=== PATIENT | female | born 1950 | race Caucasian/White ===

== ENCOUNTER 2022-04-30 22:06 | Emergency (ER) | payer SELFPAY ==
[~2022-04-30] VITALS: Ht 152.4 cm; Wt 59.0 kg
[2022-04-30 23:18] VITALS: BP 95/60
[2022-05-01 00:06] LABS: BASOPHILS % (AUTO) 0.7 % (0.0-2.0); EOSINOPHILS % (AUTO) 3.1 % (0.0-6.0); HEMATOCRIT 33 % (33-45); HEMOGLOBIN 11.1 g/dL (11.5-14.8); LYMPHOCYTES # (AUTO) 3.2 K/uL (0.8-4.8); LYMPHOCYTES % (AUTO) 51.7 % (20.0-44.0); MEAN CORPUSCULAR HGB CONC 34 g/dl (31.0-36.0); MEAN CORPUSCULAR VOLUME 89 fL (82-100); MONOCYTES # (AUTO) 0.4 K/uL (0.1-1.30); MONOCYTES % (AUTO) 7.1 % (2.0-12.0); NEUTROPHILS # (AUTO) 2.3 K/uL (1.8-8.9); NEUTROPHILS % (AUTO) 37.4 % (43.0-81.0); PLATELET COUNT (AUTO) 245 K/uL (150-450); RED BLOOD CELL COUNT(AUTO) 3.67 MIL/uL (4.0-5.2); WHITE BLOOD COUNT (AUTO) 6.3 K/uL (4.3-11.0)
[2022-05-01 00:13] LABS: CALCIUM, SERUM 8.5 mg/dL (8.5-10.1); CARBON DIOXIDE 25 mmol/L (21-32); CHLORIDE 98 mmol/L (98-107); CREATININE 0.6 mg/dL (0.6-1.3); GLUCOSE 104 mg/dL (74-106); POTASSIUM 3.9 mmol/L (3.5-5.1); SODIUM SERUM 130 mmol/L (136-145); UREA NITROGEN, BLOOD 14 mg/dL (7-18)
[2022-05-01 00:20] LABS: ALANINE AMINOTRANSFERASE 38 U/L (12-78); ALBUMIN 3.2 g/dL (3.4-5.0); ALKALINE PHOSPHATASE 101 U/L (46-116); ASPARTATE AMINOTRANSFERASE 26 U/L (15-37); BILIRUBIN,DIRECT 0.1 mg/dL (0.0-0.2); BILIRUBIN,TOTAL 0.1 mg/dL (0.2-1.0); TOTAL PROTEIN, SERUM 7.1 g/dL (6.4-8.2)
== END 2022-05-01 04:40 | disposition home or self-care (01) ==
LOC: EDBD 22:15 → EDSEX 22:15 → ER 22:15
DX: M79.602 Pain in left arm (principal)
CPT/HCPCS: 36415; 71045-TC; 80048-TC; 80076-TC; 84484-TC; 85025-TC; 85730-TC

== ENCOUNTER 2023-03-16 00:16 | Emergency (ER) | payer MEDICAID ==
[~2023-03-16] VITALS: Ht 152.4 cm; Wt 59.0 kg
--- NOTE | 2023-03-16 00:27 | NUR ---
duplicate Addendum: 03/16/23 at 0030 by RHILOMEN LIZZY THOMAS
--- NOTE | 2023-03-16 00:40 | NUR ---
URINE SAMPLE COLLECTED AND SENT TO LAB.
[2023-03-16 01:00] VITALS: BP 112/70
[2023-03-16 01:44] LABS: BILIRUBIN,URINE NEGATIVE (NEGATIVE); COLOR,URINE DARK YELLOW (YELLOW); LEUKOCYTE ESTERASE ,URINE NEGATIVE (NEGATIVE); NITRITE, URINE POSITIVE (NEGATIVE); PH,URINE 6.5 (5.0-8.0); PROTEIN,URINE NEGATIVE (NEGATIVE); UGLUCOSE NEGATIVE (NEGATIVE); UROBILINOGEN,URINE 0.2 EU/dL (0.2)
[2023-03-16 01:50] LABS: BACTERIA,URINE Few /HPF (None Seen); RBC,URINE 0-2 /HPF (0-2); SQUAMOUS EPITHELIAL CELL,UR Rare /HPF (None Seen)
[2023-03-16] MEDS ORDERED: KETOROLAC TROMETHAMINE INJ 30 MG/ML VIAL IM ONE (02:00)
[2023-03-16 02:22] LABS: CALCIUM, SERUM 9.6 mg/dL (8.5-10.1); CARBON DIOXIDE 23 mmol/L (21-32); CHLORIDE 100 mmol/L (98-107); CREATININE 0.6 mg/dL (0.6-1.3); GLUCOSE 87 mg/dL (74-106); POTASSIUM 4.6 mmol/L (3.5-5.1); SODIUM SERUM 132 mmol/L (136-145); UREA NITROGEN, BLOOD 12 mg/dL (7-18)
[2023-03-16] MEDS ORDERED: KETOROLAC TROMETHAMINE INJ 30 MG/ML VIAL ONE (02:27)
[2023-03-16 02:29] LABS: ALANINE AMINOTRANSFERASE 63 U/L (12-78); ALBUMIN 3.8 g/dL (3.4-5.0); ALKALINE PHOSPHATASE 137 U/L (46-116); ASPARTATE AMINOTRANSFERASE 35 U/L (15-37); BILIRUBIN,DIRECT 0.1 mg/dL (0.0-0.2); BILIRUBIN,TOTAL 0.2 mg/dL (0.2-1.0); LIPASE 66 U/L (73-393); TOTAL PROTEIN, SERUM 8.2 g/dL (6.4-8.2)
[2023-03-16 03:18] LABS: BASOPHILS % (AUTO) 0.7 % (0.0-2.0); EOSINOPHILS % (AUTO) 3.5 % (0.0-6.0); HEMATOCRIT 36 % (33-45); HEMOGLOBIN 12.2 g/dL (11.5-14.8); LYMPHOCYTES # (AUTO) 3.5 K/uL (0.8-4.8); LYMPHOCYTES % (AUTO) 56.7 % (20.0-44.0); MEAN CORPUSCULAR HGB CONC 34 g/dl (31.0-36.0); MEAN CORPUSCULAR VOLUME 93 fL (82-100); MONOCYTES # (AUTO) 0.4 K/uL (0.1-1.30); MONOCYTES % (AUTO) 7.1 % (2.0-12.0); PLATELET COUNT (AUTO) 330 K/uL (150-450); WHITE BLOOD COUNT (AUTO) 6.2 K/uL (4.3-11.0)
--- NOTE | 2023-03-16 04:39 | NUR ---
[place] [facility] [place] [id number] REPORT GIVEN TO GURINDER AT [phone]. [facility] ETA: 60-9 MIN
--- NOTE | 2023-03-16 05:13 | NUR ---
[facility] AT BED SIDE TO [facility] OPERATOR THE PT
--- NOTE | 2023-03-16 05:29 | NUR ---
TRANSFERRED [facility] TO THE FACILITY IN STABLE CONDITION
== END 2023-03-16 05:38 | disposition home or self-care (01) ==
LOC: ER 00:18
DX: R10.9 Unspecified abdominal pain (principal)
CPT/HCPCS: 99283; 96372; 85025; 80048; 87086; 83690; 80076; 81001; 36415; J1885

== ENCOUNTER 2023-03-22 04:20 | Emergency (ER) | payer MEDICAID ==
[~2023-03-22] VITALS: Ht 152.4 cm; Wt 59.0 kg
[2023-03-22 04:30] VITALS: BP 118/70; TEMP 97.9
--- NOTE | 2023-03-22 04:39 | NUR ---
[facility] ETA BACK TO FACILITY: 2 HOURS
--- NOTE | 2023-03-22 07:14 | NUR ---
Patient was picked up by [facility] and transferred back to the facility in stable condition
== END 2023-03-22 07:16 ==
LOC: ER 04:22
DX: F20.9 Schizophrenia, unspecified (principal); G89.29 Other chronic pain

== ENCOUNTER 2023-04-02 20:40 | Emergency (ER) | payer MEDICAID ==
[~2023-04-02] VITALS: Ht 162.6 cm; Wt 56.7 kg
--- NOTE | 2023-04-02 20:50 | NUR ---
[id number]. GEN BODY PAIN X TODAY.
--- NOTE | 2023-04-02 20:54 | NUR ---
PT PROVIDED WITH WARM BLANKET FOR COMFORT.
--- NOTE | 2023-04-02 21:13 | NUR ---
CALLED [facility] FOR TRANSPORT BACK TO FACILITY. ETA 30 MINUTES
[2023-04-02] MEDS ORDERED: KETOROLAC TROMETHAMINE INJ 30 MG/ML VIAL ONE (21:14)
[2023-04-02] MEDS ORDERED: KETOROLAC TROMETHAMINE INJ 60 MG/2 ML VIAL IM ONE (21:30)
--- NOTE | 2023-04-02 21:35 | NUR ---
REPORT GIVEN AT BEDSIDE TO [facility] FOR TRANSPORT BACK TO [facility]
[2023-04-02 21:53] VITALS: BP 98/87; TEMP 98.5
== END 2023-04-02 21:48 ==
LOC: ER 20:53
DX: G89.29 Other chronic pain (principal); M79.10 Myalgia, unspecified site
CPT/HCPCS: 99283; 96372; J1885

== ENCOUNTER 2023-04-17 08:45 | Inpatient (IN) | payer MEDICAID ==
[~2023-04-17] VITALS: Ht 162.6 cm; Wt 54.4 kg
[2023-04-17] MEDS ORDERED: MORPHINE SULFATE INJ 4 MG/ML DISP.SYRIN ONE (09:29)
[2023-04-17] MEDS ORDERED: MORPHINE SULFATE INJ 2 MG/ML DISP.SYRIN IM ONE (09:30)
[2023-04-17] MEDS ORDERED: HYDROCODONE/APAP 5/325MG TABLET PO ONE (13:30)
[2023-04-17] MEDS ORDERED: HYDROCODONE/APAP 5/325MG TABLET ONE (13:36)
[2023-04-17] MEDS ORDERED: hydrALAZINE HCL IV 20 MG VIAL IV PRN (15:00)
[2023-04-17] MEDS: IV NS 0.9% 1,000 ML IV SCH ×2 (15:00→20:16)
[2023-04-17] MEDS ORDERED: ACETAMINOPHEN 325 MG TABLET PO PRN (15:00)
[2023-04-17] MEDS ORDERED: ONDANSETRON HCL/PF 4 MG/2 ML VIAL IVP PRN (15:00)
[2023-04-17 16:27] LABS: BASOPHILS % (AUTO) 0.2 % (0.0-2.0); EOSINOPHILS % (AUTO) 0.1 % (0.0-6.0); HEMATOCRIT 39 % (33-45); LYMPHOCYTES # (AUTO) 1.3 K/uL (0.8-4.8); LYMPHOCYTES % (AUTO) 12.9 % (20.0-44.0); MEAN CORPUSCULAR HGB CONC 34 g/dl (31.0-36.0); MEAN CORPUSCULAR VOLUME 94 fL (82-100); MONOCYTES # (AUTO) 0.4 K/uL (0.1-1.30); MONOCYTES % (AUTO) 4.4 % (2.0-12.0); NEUTROPHILS # (AUTO) 8.2 K/uL (1.8-8.9); NEUTROPHILS % (AUTO) 82.4 % (43.0-81.0); PLATELET COUNT (AUTO) 317 K/uL (150-450); RED BLOOD CELL COUNT(AUTO) 4.13 MIL/uL (4.0-5.2)
[2023-04-17 16:34] LABS: CALCIUM, SERUM 9.2 mg/dL (8.5-10.1); CARBON DIOXIDE 23 mmol/L (21-32); CHLORIDE 96 mmol/L (98-107); CREATININE 0.5 mg/dL (0.6-1.3); GLUCOSE 116 mg/dL (74-106); POTASSIUM 3.6 mmol/L (3.5-5.1); SODIUM SERUM 130 mmol/L (136-145); UREA NITROGEN, BLOOD 5 mg/dL (7-18)
[2023-04-17] MEDS: HYDROCODONE/APAP 5/325MG TABLET PO PRN (17:50)
[2023-04-17] MEDS: ENOXAPARIN SODIUM 40 MG/0.4 ML DISP.SYRIN SQ SCH (17:51)
[2023-04-17 19:15] VITALS: BP 152/76; TEMP 98.2; O2SAT 84
[2023-04-17] MEDS: MORPHINE SULFATE INJ 2 MG/ML DISP.SYRIN IV PRN (20:17)
[2023-04-18] MEDS: MORPHINE SULFATE INJ 2 MG/ML DISP.SYRIN IV PRN ×5 (00:48→22:42)
[2023-04-18] MEDS: HYDROCODONE/APAP 5/325MG TABLET PO PRN ×2 (06:49→16:18)
[2023-04-18 06:52] LABS: BASOPHILS % (AUTO) 0.3 % (0.0-2.0); EOSINOPHILS % (AUTO) 0.1 % (0.0-6.0); HEMATOCRIT 36 % (33-45); LYMPHOCYTES # (AUTO) 1.5 K/uL (0.8-4.8); LYMPHOCYTES % (AUTO) 13.2 % (20.0-44.0); MEAN CORPUSCULAR HGB CONC 33 g/dl (31.0-36.0); MEAN CORPUSCULAR VOLUME 94 fL (82-100); MONOCYTES # (AUTO) 0.6 K/uL (0.1-1.30); MONOCYTES % (AUTO) 5.4 % (2.0-12.0); NEUTROPHILS # (AUTO) 9.2 K/uL (1.8-8.9); PLATELET COUNT (AUTO) 309 K/uL (150-450); RED BLOOD CELL COUNT(AUTO) 3.81 MIL/uL (4.0-5.2); WHITE BLOOD COUNT (AUTO) 11.4 K/uL (4.3-11.0)
[2023-04-18 07:28] LABS: ALANINE AMINOTRANSFERASE 38 U/L (12-78); ALKALINE PHOSPHATASE 140 U/L (46-116); ASPARTATE AMINOTRANSFERASE 22 U/L (15-37); BILIRUBIN,TOTAL 0.4 mg/dL (0.2-1.0); CALCIUM, SERUM 8.8 mg/dL (8.5-10.1); CARBON DIOXIDE 22 mmol/L (21-32); CHLORIDE 97 mmol/L (98-107); CREATININE 0.5 mg/dL (0.6-1.3); GLUCOSE 112 mg/dL (74-106); MAGNESIUM 1.9 mg/dL (1.8-2.4); PHOSPHORUS 3.4 mg/dL (2.5-4.9); POTASSIUM 3.5 mmol/L (3.5-5.1); SODIUM SERUM 129 mmol/L (136-145); TOTAL PROTEIN, SERUM 7.1 g/dL (6.4-8.2); UREA NITROGEN, BLOOD 4 mg/dL (7-18)
[2023-04-18 08:00] VITALS: BP 155/82; TEMP 99.5; O2SAT 92
[2023-04-18] MEDS ORDERED: POLYMYXIN B SULFATE 500,000 UNITS ONE (08:28)
[2023-04-18] MEDS ORDERED: BUPIVACAINE 0.5 % PF 150 MG/30 ML VIAL ONE (08:28)
[2023-04-18] MEDS ORDERED: VANCOMYCIN 1 GM VIAL ONE (08:29)
[2023-04-18] MEDS ORDERED: ROPIVACAINE HCL 0.5% 5 MG/ML 30ML VIAL ONE ×2 (08:57→09:05)
[2023-04-18] MEDS ORDERED: MIDAZOLAM HCL 2 MG/2ML VIAL ONE (08:57)
[2023-04-18] MEDS ORDERED: TRANEXAMIC ACID 1,000 MG/10 ML VIAL ONE (08:57)
[2023-04-18] MEDS ORDERED: FENTANYL PF 100MCG/2ML AMPUL ONE (08:57)
[2023-04-18] MEDS ORDERED: ROCURONIUM BROMIDE 50 MG/5 ML ONE (08:58)
[2023-04-18] MEDS ORDERED: FAMOTIDINE/PF INJ 20 MG/2 ML VIAL IV ONE (08:58)
[2023-04-18] MEDS ORDERED: DOCU250C14 PO (14:33)
[2023-04-18] MEDS ORDERED: METO50TA16 PO (14:33)
[2023-04-18] MEDS ORDERED: SODI1TAB66 PO (14:33)
[2023-04-18] MEDS ORDERED: OLAN15TA3 PO (14:33)
[2023-04-18] MEDS ORDERED: FERR325T23 PO (14:33)
[2023-04-18] MEDS ORDERED: OLAN10TA3 PO (14:33)
[2023-04-18] MEDS ORDERED: PRIM250T32 PO (14:33)
[2023-04-18] MEDS ORDERED: PHENOBARBITAL PO (14:33)
[2023-04-18] MEDS ORDERED: APIX5TAB PO (14:33)
[2023-04-18] MEDS ORDERED: OXYC-128 PO (14:33)
[2023-04-18] MEDS ORDERED: MULT-1160 PO (14:33)
[2023-04-18] MEDS ORDERED: ASPI-1169 PO (14:33)
[2023-04-18] MEDS ORDERED: FURO20TA4 PO (14:33)
[2023-04-18] MEDS ORDERED: ATOR10TA PO (14:33)
[2023-04-18] MEDS ORDERED: QUET100T PO (14:33)
[2023-04-18] MEDS ORDERED: LORA10TA7 PO (14:33)
[2023-04-18] MEDS ORDERED: OMEP20CA15 PO (14:33)
[2023-04-18] MEDS ORDERED: GABA-536 PO (14:33)
[2023-04-18] MEDS ORDERED: RISP0.5T65 PO (14:33)
[2023-04-18] MEDS ORDERED: AMLO2.5T4 PO (14:33)
[2023-04-18] MEDS ORDERED: TEMA15CA PO (14:33)
[2023-04-18] MEDS: ENOXAPARIN SODIUM 40 MG/0.4 ML DISP.SYRIN SQ SCH (16:21)
[2023-04-18 16:27] VITALS: BP 141/79; TEMP 98; O2SAT 98
[2023-04-18] MEDS: IV NS 0.9% 1,000 ML IV SCH (18:09)
[2023-04-18 20:00] VITALS: BP 111/66; TEMP 98.2; O2SAT 97
[2023-04-18 23:40] VITALS: O2SAT 97
[2023-04-18] MEDS: ACETYLCYSTEINE 20% SOLN 800 MG/4 ML VIAL NEB SCH (23:41)
[2023-04-18 23:55] VITALS: O2SAT 99
[2023-04-19] VITALS (9 sets, daily range): BP systolic 112–152; BP diastolic 65–76; TEMP 98.2–98.6; O2SAT 94–99
[2023-04-19] MEDS ORDERED: ZOLPIDEM TARTRATE 5 MG TABLET PO PRN (00:30)
[2023-04-19] MEDS: MORPHINE SULFATE INJ 2 MG/ML DISP.SYRIN IV PRN ×6 (03:53→21:50)
[2023-04-19 04:39] LABS: ABG BASE EXCESS 0.7 mmol/L; ABG OXYGEN SATURATION 96.1 % (92.0-98.5); ABG PCO2 36.1 mmHg (35.0-45.0); ABG PH 7.448 (7.350-7.450); AaDO2 193.8 mmHg; COHb 0.9 % (0.5-1.5); MetHb 0.3 % (0.0-1.5); O2Hb 94.9 % (94.0-97.0); SITE, ABG Left Radial; VENT MODE, BG 6L SIMPLE MASK
[2023-04-19 06:30] LABS: BILIRUBIN,URINE NEGATIVE (NEGATIVE); COLOR,URINE DARK YELLOW (YELLOW); LEUKOCYTE ESTERASE ,URINE 1+ (NEGATIVE); NITRITE, URINE POSITIVE (NEGATIVE); PROTEIN,URINE 2+ mg/dl (NEGATIVE); UGLUCOSE NEGATIVE (NEGATIVE)
[2023-04-19 06:31] LABS: BACTERIA,URINE Moderate /HPF (None Seen); SQUAMOUS EPITHELIAL CELL,UR Few /HPF (None Seen)
[2023-04-19] MEDS: IV NS 0.9% 1,000 ML IV SCH ×2 (07:00→21:53)
[2023-04-19 07:57] LABS: BASOPHILS % (AUTO) 0.1 % (0.0-2.0); EOSINOPHILS % (AUTO) 0.3 % (0.0-6.0); HEMATOCRIT 32 % (33-45); HEMOGLOBIN 11.2 g/dL (11.5-14.8); LYMPHOCYTES # (AUTO) 2.1 K/uL (0.8-4.8); LYMPHOCYTES % (AUTO) 26.2 % (20.0-44.0); MEAN CORPUSCULAR HGB CONC 35 g/dl (31.0-36.0); MEAN CORPUSCULAR VOLUME 93 fL (82-100); MONOCYTES # (AUTO) 0.6 K/uL (0.1-1.30); MONOCYTES % (AUTO) 7.7 % (2.0-12.0); NEUTROPHILS # (AUTO) 5.2 K/uL (1.8-8.9); NEUTROPHILS % (AUTO) 65.7 % (43.0-81.0); PLATELET COUNT (AUTO) 286 K/uL (150-450); RED BLOOD CELL COUNT(AUTO) 3.47 MIL/uL (4.0-5.2)
[2023-04-19 08:07] LABS: CALCIUM, SERUM 9.1 mg/dL (8.5-10.1); CARBON DIOXIDE 26 mmol/L (21-32); CHLORIDE 98 mmol/L (98-107); CREATININE 0.4 mg/dL (0.6-1.3); GLUCOSE 98 mg/dL (74-106); MAGNESIUM 2.1 mg/dL (1.8-2.4); PHOSPHORUS 2.6 mg/dL (2.5-4.9); POTASSIUM 3.6 mmol/L (3.5-5.1); SODIUM SERUM 133 mmol/L (136-145); UREA NITROGEN, BLOOD 7 mg/dL (7-18)
[2023-04-19] MEDS: ACETYLCYSTEINE 20% SOLN 800 MG/4 ML VIAL NEB SCH ×3 (08:09→23:51)
[2023-04-19] MEDS: CEFTRIAXONE 1 G in IV D5W 50 ML IV SCH (10:17)
[2023-04-19] MEDS: HYDROCODONE/APAP 5/325MG TABLET PO PRN (10:18)
[2023-04-19] MEDS: LORAZEPAM INJ 2 MG/ML VIAL IV PRN ×2 (13:04→23:42)
[2023-04-19] MEDS: ENOXAPARIN SODIUM 40 MG/0.4 ML DISP.SYRIN SQ SCH (16:13)
[2023-04-20] VITALS (12 sets, daily range): BP systolic 113–174; BP diastolic 58–94; TEMP 97.4–98.2; O2SAT 91–98
[2023-04-20] MEDS: ACETYLCYSTEINE 20% SOLN 800 MG/4 ML VIAL NEB SCH ×3 (07:35→23:19)
[2023-04-20] MEDS ORDERED: ANESTHESIA TRAY IN PYXIS 1 EA TRAY MC ONE (07:57)
[2023-04-20] MEDS ORDERED: VANCOMYCIN 1 GM VIAL ONE (07:58)
[2023-04-20] MEDS ORDERED: POLYMYXIN B SULFATE 0 UNITS ONE (07:58)
[2023-04-20] MEDS ORDERED: BUPIVACAINE 0.5 % PF 150 MG/30 ML VIAL ONE (07:58)
[2023-04-20] MEDS ORDERED: KETAMINE HCL (500MG/10ML) 50 MG/ML VIAL ONE (08:13)
[2023-04-20] MEDS ORDERED: MIDAZOLAM HCL 2 MG/2ML VIAL ONE (08:13)
[2023-04-20] MEDS ORDERED: FENTANYL PF 100MCG/2ML AMPUL ONE (08:13)
[2023-04-20] MEDS ORDERED: ROPIVACAINE HCL 0.5% 5 MG/ML 30ML VIAL ONE (08:14)
[2023-04-20] MEDS ORDERED: LIDOCAINE 1% INJ 50 ML MDV IJ ONE (08:17)
[2023-04-20] MEDS ORDERED: IV D5/0.45 NACL W/20 MEQ KCL 1L IV SCH ×2 (13:00)
[2023-04-20] MEDS: CEFTRIAXONE 1 G in IV D5W 50 ML IV SCH (13:46)
[2023-04-20] MEDS: MORPHINE SULFATE INJ 2 MG/ML DISP.SYRIN IV PRN ×3 (14:23→23:39)
[2023-04-20] MEDS ORDERED: IV NS 0.9% 1,000 ML IV PRN (15:30)
[2023-04-20] MEDS: ENOXAPARIN SODIUM 40 MG/0.4 ML DISP.SYRIN SQ SCH (16:12)
[2023-04-20] MEDS: LORAZEPAM INJ 2 MG/ML VIAL IV PRN (16:56)
[2023-04-20] MEDS: Potassium Chloride 20 MEQ in IV D5/0.45 NACL 1,000 ML IV SCH ×3 (17:42→18:11)
[2023-04-20] MEDS: ANCEF 1 GM/50 ML D5W IV SCH ×2 (17:44)
[2023-04-21] MEDS: LORAZEPAM INJ 2 MG/ML VIAL IV PRN (01:12)
[2023-04-21] MEDS: ANCEF 1 GM/50 ML D5W IV SCH ×4 (01:28→10:34)
[2023-04-21] MEDS: MORPHINE SULFATE INJ 2 MG/ML DISP.SYRIN IV PRN ×5 (02:56→17:45)
[2023-04-21 07:26] VITALS: O2SAT 94
[2023-04-21] MEDS: ACETYLCYSTEINE 20% SOLN 800 MG/4 ML VIAL NEB SCH (07:26)
[2023-04-21] MEDS: Potassium Chloride 20 MEQ in IV D5/0.45 NACL 1,000 ML IV SCH ×2 (07:39→22:42)
[2023-04-21 07:42] VITALS: O2SAT 97
[2023-04-21 08:57] VITALS: BP 163/84; TEMP 98.2; O2SAT 97
[2023-04-21] MEDS: CEFTRIAXONE 1 G in IV D5W 50 ML IV SCH (09:26)
[2023-04-21] MEDS: FERROUS SULFATE (325 MG) 325 MG/TAB TABLET PO SCH (09:27)
[2023-04-21] MEDS: DOCUSATE SODIUM 250 MG CAPSULE PO SCH ×2 (09:27→16:21)
[2023-04-21] MEDS: ASPIRIN 81 MG TAB.CHEW PO SCH (09:27)
[2023-04-21] MEDS: MULTIVIT W/MINERALS 1 TAB TABLET PO SCH (09:27)
[2023-04-21] MEDS: LORATADINE 10 MG TABLET PO SCH (09:27)
[2023-04-21] MEDS: PRIMIDONE 250 MG TABLET PO SCH ×2 (09:27→16:22)
[2023-04-21] MEDS: OLANZAPINE 10 MG TABLET PO SCH (09:27)
[2023-04-21] MEDS: GABAPENTIN 400 MG CAPSULE PO SCH ×3 (09:28→16:21)
[2023-04-21] MEDS: FUROSEMIDE 20 MG TABLET PO SCH (09:28)
[2023-04-21] MEDS: AMLODIPINE BESYLATE 2.5 MG TABLET PO SCH (09:29)
[2023-04-21] MEDS: METOPROLOL TARTRATE 50 MG TABLET PO SCH ×2 (09:29→16:22)
[2023-04-21] MEDS: APIXABAN 5 MG TABLET PO SCH ×2 (09:31→16:23)
[2023-04-21 09:55] LABS: BASOPHILS % (AUTO) 0.2 % (0.0-2.0); EOSINOPHILS % (AUTO) 0.3 % (0.0-6.0); HEMATOCRIT 31 % (33-45); LYMPHOCYTES # (AUTO) 1.8 K/uL (0.8-4.8); LYMPHOCYTES % (AUTO) 23.3 % (20.0-44.0); MEAN CORPUSCULAR HGB CONC 35 g/dl (31.0-36.0); MEAN CORPUSCULAR VOLUME 92 fL (82-100); MONOCYTES # (AUTO) 0.8 K/uL (0.1-1.30); MONOCYTES % (AUTO) 9.7 % (2.0-12.0); NEUTROPHILS # (AUTO) 5.2 K/uL (1.8-8.9); NEUTROPHILS % (AUTO) 66.5 % (43.0-81.0); PLATELET COUNT (AUTO) 293 K/uL (150-450); RED BLOOD CELL COUNT(AUTO) 3.38 MIL/uL (4.0-5.2); WHITE BLOOD COUNT (AUTO) 7.8 K/uL (4.3-11.0)
[2023-04-21 10:06] LABS: CALCIUM, SERUM 8.8 mg/dL (8.5-10.1); CARBON DIOXIDE 24 mmol/L (21-32); CHLORIDE 97 mmol/L (98-107); CREATININE 0.3 mg/dL (0.6-1.3); GLUCOSE 114 mg/dL (74-106); POTASSIUM 3.3 mmol/L (3.5-5.1); SODIUM SERUM 131 mmol/L (136-145); UREA NITROGEN, BLOOD 3 mg/dL (7-18)
[2023-04-21] MEDS: SODIUM CHLORIDE 1000 MG TABLET PO SCH ×2 (10:38→16:21)
[2023-04-21] MEDS: risperiDONE 0.25 MG TABLET PO SCH ×2 (10:38→16:21)
[2023-04-21 16:27] VITALS: BP 109/56; TEMP 99.3; O2SAT 98
[2023-04-21] MEDS ORDERED: PHENOBARBITAL 20 MG/5 ML UDC PO SCH (17:00)
[2023-04-21] MEDS: PHENOBARBITAL 60 MG/15 ML UDC PO SCH (17:41)
[2023-04-21 20:00] VITALS: BP 117/61; TEMP 99; O2SAT 96
[2023-04-21] MEDS: OLANZAPINE 5 MG TABLET PO SCH (22:31)
[2023-04-21] MEDS: TEMAZEPAM 15 MG CAPSULE PO SCH (22:31)
[2023-04-21] MEDS: QUETIAPINE FUMARATE 100 MG TABLET PO SCH (22:32)
[2023-04-21] MEDS: ATORVASTATIN 10 MG TABLET PO SCH (22:32)
[2023-04-22] MEDS: MORPHINE SULFATE INJ 2 MG/ML DISP.SYRIN IV PRN ×6 (05:23→18:22)
[2023-04-22] MEDS: PANTOPRAZOLE 40 MG TABLET.DR PO SCH (07:46)
[2023-04-22] MEDS: POTASSIUM CHLORIDE 20 MEQ TAB.PRT.SR PO SCH ×3 (08:15→10:31)
[2023-04-22 08:49] VITALS: BP 135/69; TEMP 98.6; O2SAT 95
[2023-04-22] MEDS: OLANZAPINE 10 MG TABLET PO SCH (08:51)
[2023-04-22] MEDS: DOCUSATE SODIUM 250 MG CAPSULE PO SCH ×2 (08:51→17:17)
[2023-04-22] MEDS: risperiDONE 0.25 MG TABLET PO SCH ×2 (08:51→17:18)
[2023-04-22] MEDS: GABAPENTIN 400 MG CAPSULE PO SCH ×3 (08:52→17:17)
[2023-04-22] MEDS: PRIMIDONE 250 MG TABLET PO SCH ×2 (08:52→17:18)
[2023-04-22] MEDS: ASPIRIN 81 MG TAB.CHEW PO SCH (08:52)
[2023-04-22] MEDS: METOPROLOL TARTRATE 50 MG TABLET PO SCH ×2 (08:52→17:18)
[2023-04-22] MEDS: MULTIVIT W/MINERALS 1 TAB TABLET PO SCH (08:52)
[2023-04-22] MEDS: FERROUS SULFATE (325 MG) 325 MG/TAB TABLET PO SCH (08:53)
[2023-04-22] MEDS: AMLODIPINE BESYLATE 2.5 MG TABLET PO SCH (08:53)
[2023-04-22] MEDS: FUROSEMIDE 20 MG TABLET PO SCH (08:53)
[2023-04-22] MEDS: LORATADINE 10 MG TABLET PO SCH (08:53)
[2023-04-22] MEDS: PHENOBARBITAL 60 MG/15 ML UDC PO SCH ×2 (08:54→17:19)
[2023-04-22] MEDS: APIXABAN 5 MG TABLET PO SCH ×2 (08:56→17:20)
[2023-04-22] MEDS: CEFTRIAXONE 1 G in IV D5W 50 ML IV SCH (10:31)
[2023-04-22] MEDS: SODIUM CHLORIDE 1000 MG TABLET PO SCH (17:17)
[2023-04-22] MEDS: ATORVASTATIN 10 MG TABLET PO SCH (22:22)
[2023-04-22] MEDS: OLANZAPINE 5 MG TABLET PO SCH (22:22)
[2023-04-22] MEDS: TEMAZEPAM 15 MG CAPSULE PO SCH (22:22)
[2023-04-22] MEDS: QUETIAPINE FUMARATE 100 MG TABLET PO SCH (22:22)
[2023-04-23] MEDS: MORPHINE SULFATE INJ 2 MG/ML DISP.SYRIN IV PRN ×6 (03:47→21:03)
[2023-04-23 07:00] VITALS: BP 135/77; TEMP 98.9; O2SAT 80
[2023-04-23] MEDS: PANTOPRAZOLE 40 MG TABLET.DR PO SCH (07:30)
[2023-04-23 07:46] LABS: CALCIUM, SERUM 8.9 mg/dL (8.5-10.1); CARBON DIOXIDE 26 mmol/L (21-32); CHLORIDE 99 mmol/L (98-107); CREATININE 0.3 mg/dL (0.6-1.3); GLUCOSE 103 mg/dL (74-106); POTASSIUM 4.5 mmol/L (3.5-5.1); SODIUM SERUM 133 mmol/L (136-145); UREA NITROGEN, BLOOD 9 mg/dL (7-18)
[2023-04-23] MEDS: OLANZAPINE 10 MG TABLET PO SCH (09:12)
[2023-04-23] MEDS: FUROSEMIDE 20 MG TABLET PO SCH (09:13)
[2023-04-23] MEDS: LORATADINE 10 MG TABLET PO SCH (09:13)
[2023-04-23] MEDS: ASPIRIN 81 MG TAB.CHEW PO SCH (09:13)
[2023-04-23] MEDS: DOCUSATE SODIUM 250 MG CAPSULE PO SCH ×2 (09:13→16:08)
[2023-04-23] MEDS: GABAPENTIN 400 MG CAPSULE PO SCH ×3 (09:13→16:08)
[2023-04-23] MEDS: MULTIVIT W/MINERALS 1 TAB TABLET PO SCH (09:13)
[2023-04-23] MEDS: FERROUS SULFATE (325 MG) 325 MG/TAB TABLET PO SCH (09:13)
[2023-04-23] MEDS: risperiDONE 0.25 MG TABLET PO SCH (09:13)
[2023-04-23] MEDS: SODIUM CHLORIDE 1000 MG TABLET PO SCH ×2 (09:13→16:08)
[2023-04-23] MEDS: METOPROLOL TARTRATE 50 MG TABLET PO SCH ×2 (09:14→16:14)
[2023-04-23] MEDS: AMLODIPINE BESYLATE 2.5 MG TABLET PO SCH (09:14)
[2023-04-23] MEDS: PRIMIDONE 250 MG TABLET PO SCH ×2 (09:14→16:08)
[2023-04-23] MEDS: PHENOBARBITAL 60 MG/15 ML UDC PO SCH ×2 (09:15→16:08)
[2023-04-23] MEDS: APIXABAN 5 MG TABLET PO SCH ×2 (09:17→16:15)
[2023-04-23] MEDS: CEFTRIAXONE 1 G in IV D5W 50 ML IV SCH (10:00)
[2023-04-23 20:00] VITALS: BP 104/65; TEMP 99.2; O2SAT 93
[2023-04-23] MEDS: ATORVASTATIN 10 MG TABLET PO SCH (22:27)
[2023-04-23] MEDS: QUETIAPINE FUMARATE 100 MG TABLET PO SCH (22:27)
[2023-04-23] MEDS: OLANZAPINE 5 MG TABLET PO SCH (22:27)
[2023-04-23] MEDS: TEMAZEPAM 15 MG CAPSULE PO SCH (22:27)
[2023-04-24] MEDS: MORPHINE SULFATE INJ 2 MG/ML DISP.SYRIN IV PRN ×4 (01:10→19:34)
[2023-04-24 07:00] VITALS: BP 140/82; TEMP 98.9; O2SAT 90
[2023-04-24] MEDS: PANTOPRAZOLE 40 MG TABLET.DR PO SCH (09:03)
[2023-04-24] MEDS: ASPIRIN 81 MG TAB.CHEW PO SCH (09:11)
[2023-04-24] MEDS: OLANZAPINE 10 MG TABLET PO SCH (09:12)
[2023-04-24] MEDS: GABAPENTIN 400 MG CAPSULE PO SCH ×3 (09:12→17:26)
[2023-04-24] MEDS: DOCUSATE SODIUM 250 MG CAPSULE PO SCH ×2 (09:12→17:26)
[2023-04-24] MEDS: LORATADINE 10 MG TABLET PO SCH (09:13)
[2023-04-24] MEDS: PRIMIDONE 250 MG TABLET PO SCH ×2 (09:13→17:26)
[2023-04-24] MEDS: FUROSEMIDE 20 MG TABLET PO SCH (09:13)
[2023-04-24] MEDS: SODIUM CHLORIDE 1000 MG TABLET PO SCH ×2 (09:13→17:25)
[2023-04-24] MEDS: MULTIVIT W/MINERALS 1 TAB TABLET PO SCH (09:13)
[2023-04-24] MEDS: METOPROLOL TARTRATE 50 MG TABLET PO SCH ×2 (09:14→17:26)
[2023-04-24] MEDS: FERROUS SULFATE (325 MG) 325 MG/TAB TABLET PO SCH (09:14)
[2023-04-24] MEDS: AMLODIPINE BESYLATE 2.5 MG TABLET PO SCH (09:15)
[2023-04-24] MEDS: PHENOBARBITAL 60 MG/15 ML UDC PO SCH ×2 (09:16→17:27)
[2023-04-24] MEDS: APIXABAN 5 MG TABLET PO SCH ×2 (09:17→17:27)
[2023-04-24] MEDS: CEFTRIAXONE 1 G in IV D5W 50 ML IV SCH (10:40)
[2023-04-24 16:00] VITALS: BP 118/66; TEMP 99.9; O2SAT 90
[2023-04-24 20:00] VITALS: BP 112/60; TEMP 98.8; O2SAT 94
[2023-04-24] MEDS: ATORVASTATIN 10 MG TABLET PO SCH (21:49)
[2023-04-24] MEDS: TEMAZEPAM 15 MG CAPSULE PO SCH (21:49)
[2023-04-24] MEDS: QUETIAPINE FUMARATE 100 MG TABLET PO SCH (21:49)
[2023-04-24] MEDS: OLANZAPINE 5 MG TABLET PO SCH (21:49)
[2023-04-25] MEDS: MORPHINE SULFATE INJ 2 MG/ML DISP.SYRIN IV PRN ×4 (04:23→17:00)
[2023-04-25 07:30] VITALS: BP 153/76; TEMP 99.1; O2SAT 95
[2023-04-25] MEDS: PANTOPRAZOLE 40 MG TABLET.DR PO SCH (08:27)
[2023-04-25] MEDS: CEFTRIAXONE 1 G in IV D5W 50 ML IV SCH (09:35)
[2023-04-25] MEDS: SODIUM CHLORIDE 1000 MG TABLET PO SCH ×2 (09:36→17:03)
[2023-04-25] MEDS: MULTIVIT W/MINERALS 1 TAB TABLET PO SCH (09:36)
[2023-04-25] MEDS: FERROUS SULFATE (325 MG) 325 MG/TAB TABLET PO SCH (09:36)
[2023-04-25] MEDS: ASPIRIN 81 MG TAB.CHEW PO SCH (09:36)
[2023-04-25] MEDS: OLANZAPINE 10 MG TABLET PO SCH (09:36)
[2023-04-25] MEDS: GABAPENTIN 400 MG CAPSULE PO SCH ×3 (09:36→17:03)
[2023-04-25] MEDS: PRIMIDONE 250 MG TABLET PO SCH ×2 (09:37→17:03)
[2023-04-25] MEDS: DOCUSATE SODIUM 250 MG CAPSULE PO SCH ×2 (09:37→17:03)
[2023-04-25] MEDS: FUROSEMIDE 20 MG TABLET PO SCH (09:37)
[2023-04-25] MEDS: LORATADINE 10 MG TABLET PO SCH (09:37)
[2023-04-25] MEDS: AMLODIPINE BESYLATE 2.5 MG TABLET PO SCH (09:38)
[2023-04-25] MEDS: METOPROLOL TARTRATE 50 MG TABLET PO SCH ×2 (09:38→17:00)
[2023-04-25] MEDS: APIXABAN 5 MG TABLET PO SCH ×2 (09:43→17:04)
[2023-04-25] MEDS: PHENOBARBITAL 60 MG/15 ML UDC PO SCH ×2 (09:48→17:02)
[2023-04-25 16:00] VITALS: BP 99/52; TEMP 98.2; O2SAT 95
[2023-04-25 20:00] VITALS: BP 105/56; TEMP 99.3; O2SAT 90
[2023-04-25] MEDS: OLANZAPINE 5 MG TABLET PO SCH (21:48)
[2023-04-25] MEDS: ATORVASTATIN 10 MG TABLET PO SCH (21:48)
[2023-04-25] MEDS: QUETIAPINE FUMARATE 100 MG TABLET PO SCH (21:48)
[2023-04-25] MEDS: TEMAZEPAM 15 MG CAPSULE PO SCH (21:49)
[2023-04-26 00:22] VITALS: BP 112/65
[2023-04-26] MEDS: MORPHINE SULFATE INJ 2 MG/ML DISP.SYRIN IV PRN ×6 (00:24→16:58)
[2023-04-26 06:48] LABS: CALCIUM, SERUM 9.3 mg/dL (8.5-10.1); CARBON DIOXIDE 26 mmol/L (21-32); CHLORIDE 100 mmol/L (98-107); CREATININE 0.3 mg/dL (0.6-1.3); GLUCOSE 96 mg/dL (74-106); POTASSIUM 4.1 mmol/L (3.5-5.1); SODIUM SERUM 134 mmol/L (136-145); UREA NITROGEN, BLOOD 12 mg/dL (7-18)
[2023-04-26 08:30] VITALS: BP 118/68; TEMP 98.2; O2SAT 94
[2023-04-26] MEDS: ASPIRIN 81 MG TAB.CHEW PO SCH (08:38)
[2023-04-26] MEDS: FERROUS SULFATE (325 MG) 325 MG/TAB TABLET PO SCH (08:38)
[2023-04-26] MEDS: LORATADINE 10 MG TABLET PO SCH (08:38)
[2023-04-26] MEDS: PANTOPRAZOLE 40 MG TABLET.DR PO SCH (08:38)
[2023-04-26] MEDS: MULTIVIT W/MINERALS 1 TAB TABLET PO SCH (08:39)
[2023-04-26] MEDS: METOPROLOL TARTRATE 50 MG TABLET PO SCH ×2 (08:39→17:39)
[2023-04-26] MEDS: AMLODIPINE BESYLATE 2.5 MG TABLET PO SCH (08:39)
[2023-04-26] MEDS: DOCUSATE SODIUM 250 MG CAPSULE PO SCH ×2 (08:39→17:38)
[2023-04-26] MEDS: OLANZAPINE 10 MG TABLET PO SCH (08:39)
[2023-04-26] MEDS: GABAPENTIN 400 MG CAPSULE PO SCH ×3 (08:39→17:38)
[2023-04-26] MEDS: FUROSEMIDE 20 MG TABLET PO SCH (08:40)
[2023-04-26] MEDS: PHENOBARBITAL 60 MG/15 ML UDC PO SCH ×2 (08:41→17:38)
[2023-04-26] MEDS: APIXABAN 5 MG TABLET PO SCH ×2 (08:43→17:40)
[2023-04-26] MEDS: PRIMIDONE 250 MG TABLET PO SCH ×2 (08:46→17:39)
[2023-04-26] MEDS: SODIUM CHLORIDE 1000 MG TABLET PO SCH ×2 (08:47→17:39)
[2023-04-26] MEDS: CEFTRIAXONE 1 G in IV D5W 50 ML IV SCH (09:02)
[2023-04-26 16:20] VITALS: BP 96/61; TEMP 98.2; O2SAT 94
[2023-04-26 20:00] VITALS: BP 93/52; TEMP 98.6; O2SAT 93
[2023-04-26] MEDS: HYDROCODONE/APAP 5/325MG TABLET PO PRN (20:56)
[2023-04-26] MEDS: OLANZAPINE 5 MG TABLET PO SCH (21:19)
[2023-04-26] MEDS: QUETIAPINE FUMARATE 100 MG TABLET PO SCH (21:20)
[2023-04-26] MEDS: TEMAZEPAM 15 MG CAPSULE PO SCH (21:20)
[2023-04-26] MEDS: ATORVASTATIN 10 MG TABLET PO SCH (21:20)
[2023-04-27] MEDS: MORPHINE SULFATE INJ 2 MG/ML DISP.SYRIN IV PRN ×6 (00:12→20:36)
[2023-04-27 04:00] VITALS: BP 137/72; TEMP 99.9; O2SAT 94
[2023-04-27 06:38] LABS: BASOPHILS # (AUTO) 0.1 K/uL (0.0-0.2); BASOPHILS % (AUTO) 1.7 % (0.0-2.0); EOSINOPHILS % (AUTO) 5.1 % (0.0-6.0); HEMATOCRIT 29 % (33-45); HEMOGLOBIN 9.9 g/dL (11.5-14.8); LYMPHOCYTES # (AUTO) 2.6 K/uL (0.8-4.8); LYMPHOCYTES % (AUTO) 42.3 % (20.0-44.0); MEAN CORPUSCULAR HGB CONC 35 g/dl (31.0-36.0); MEAN CORPUSCULAR VOLUME 93 fL (82-100); MONOCYTES # (AUTO) 0.5 K/uL (0.1-1.30); MONOCYTES % (AUTO) 8.3 % (2.0-12.0); NEUTROPHILS # (AUTO) 2.6 K/uL (1.8-8.9); NEUTROPHILS % (AUTO) 42.6 % (43.0-81.0); PLATELET COUNT (AUTO) 500 K/uL (150-450); RED BLOOD CELL COUNT(AUTO) 3.08 MIL/uL (4.0-5.2); WHITE BLOOD COUNT (AUTO) 6.1 K/uL (4.3-11.0)
[2023-04-27 07:15] LABS: CALCIUM, SERUM 9.2 mg/dL (8.5-10.1); CARBON DIOXIDE 27 mmol/L (21-32); CHLORIDE 99 mmol/L (98-107); CREATININE 0.4 mg/dL (0.6-1.3); GLUCOSE 92 mg/dL (74-106); POTASSIUM 4.5 mmol/L (3.5-5.1); SODIUM SERUM 134 mmol/L (136-145); UREA NITROGEN, BLOOD 13 mg/dL (7-18)
[2023-04-27] MEDS: PANTOPRAZOLE 40 MG TABLET.DR PO SCH (07:27)
[2023-04-27 08:30] VITALS: BP 115/69; TEMP 98.3; O2SAT 94
[2023-04-27] MEDS: ASPIRIN 81 MG TAB.CHEW PO SCH (09:54)
[2023-04-27] MEDS: AMLODIPINE BESYLATE 2.5 MG TABLET PO SCH (09:54)
[2023-04-27] MEDS: PHENOBARBITAL 60 MG/15 ML UDC PO SCH ×2 (09:54→17:44)
[2023-04-27] MEDS: DOCUSATE SODIUM 250 MG CAPSULE PO SCH ×2 (09:55→17:44)
[2023-04-27] MEDS: METOPROLOL TARTRATE 50 MG TABLET PO SCH ×2 (09:55→17:00)
[2023-04-27] MEDS: MULTIVIT W/MINERALS 1 TAB TABLET PO SCH (09:55)
[2023-04-27] MEDS: PRIMIDONE 250 MG TABLET PO SCH ×2 (09:55→17:44)
[2023-04-27] MEDS: FUROSEMIDE 20 MG TABLET PO SCH (09:55)
[2023-04-27] MEDS: SODIUM CHLORIDE 1000 MG TABLET PO SCH ×2 (09:55→17:44)
[2023-04-27] MEDS: LORATADINE 10 MG TABLET PO SCH (09:55)
[2023-04-27] MEDS: OLANZAPINE 10 MG TABLET PO SCH (09:55)
[2023-04-27] MEDS: FERROUS SULFATE (325 MG) 325 MG/TAB TABLET PO SCH (09:55)
[2023-04-27] MEDS: GABAPENTIN 400 MG CAPSULE PO SCH ×3 (09:55→17:44)
[2023-04-27] MEDS: APIXABAN 5 MG TABLET PO SCH ×2 (09:57→17:45)
[2023-04-27] MEDS: CEFTRIAXONE 1 G in IV D5W 50 ML IV SCH (10:56)
[2023-04-27 13:52] VITALS: BP 110/69
[2023-04-27 16:00] VITALS: BP 86/54; TEMP 98.3; O2SAT 94
[2023-04-27 20:00] VITALS: BP 104/65; TEMP 98.8; O2SAT 95
[2023-04-27] MEDS: ATORVASTATIN 10 MG TABLET PO SCH (21:28)
[2023-04-27] MEDS: QUETIAPINE FUMARATE 100 MG TABLET PO SCH (21:28)
[2023-04-27] MEDS: TEMAZEPAM 15 MG CAPSULE PO SCH (21:28)
[2023-04-27] MEDS: OLANZAPINE 5 MG TABLET PO SCH (21:28)
[2023-04-28] MEDS: MORPHINE SULFATE INJ 2 MG/ML DISP.SYRIN IV PRN ×6 (00:27→18:27)
[2023-04-28 07:19] LABS: CALCIUM, SERUM 9.4 mg/dL (8.5-10.1); CARBON DIOXIDE 26 mmol/L (21-32); CHLORIDE 98 mmol/L (98-107); CREATININE 0.4 mg/dL (0.6-1.3); GLUCOSE 93 mg/dL (74-106); SODIUM SERUM 132 mmol/L (136-145); UREA NITROGEN, BLOOD 13 mg/dL (7-18)
[2023-04-28 08:56] VITALS: BP 128/69; TEMP 98.6; O2SAT 95
[2023-04-28] MEDS: PANTOPRAZOLE 40 MG TABLET.DR PO SCH (09:00)
[2023-04-28] MEDS: LORATADINE 10 MG TABLET PO SCH (09:00)
[2023-04-28] MEDS: DOCUSATE SODIUM 250 MG CAPSULE PO SCH ×2 (09:00→18:28)
[2023-04-28] MEDS: ASPIRIN 81 MG TAB.CHEW PO SCH (09:00)
[2023-04-28] MEDS: FERROUS SULFATE (325 MG) 325 MG/TAB TABLET PO SCH (09:01)
[2023-04-28] MEDS: APIXABAN 5 MG TABLET PO SCH ×2 (09:01→18:29)
[2023-04-28] MEDS: METOPROLOL TARTRATE 50 MG TABLET PO SCH ×2 (09:02→18:29)
[2023-04-28] MEDS: FUROSEMIDE 20 MG TABLET PO SCH (09:02)
[2023-04-28] MEDS: GABAPENTIN 400 MG CAPSULE PO SCH ×3 (09:03→18:28)
[2023-04-28] MEDS: PRIMIDONE 250 MG TABLET PO SCH ×2 (09:03→18:32)
[2023-04-28] MEDS: AMLODIPINE BESYLATE 2.5 MG TABLET PO SCH (09:03)
[2023-04-28] MEDS: OLANZAPINE 10 MG TABLET PO SCH (09:04)
[2023-04-28] MEDS: SODIUM CHLORIDE 1000 MG TABLET PO SCH ×2 (09:04→18:33)
[2023-04-28] MEDS: MULTIVIT W/MINERALS 1 TAB TABLET PO SCH (09:04)
[2023-04-28] MEDS: PHENOBARBITAL 60 MG/15 ML UDC PO SCH ×2 (09:04→18:27)
[2023-04-28] MEDS: CEFTRIAXONE 1 G in IV D5W 50 ML IV SCH (10:22)
[2023-04-28] MEDS: HYDROCODONE/APAP 5/325MG TABLET PO PRN ×2 (12:51→14:25)
[2023-04-28 16:11] VITALS: BP_SYST 110; BP_SYST 114; BP_DIAS 45; BP_DIAS 82; TEMP 98.1; TEMP 98.4; O2SAT 100; O2SAT 94
[2023-04-28 18:29] VITALS: BP 107/74
== END 2023-04-28 20:10 | disposition home health service (06) | DRG 315 ==
LOC: ER 08:48 → MED 14:32
PROVIDERS: ADMIT Internal Medicine; ATTEND Internal Medicine
PROC: 05H633Z Insertion of Infusion Device into Left Subclavian Vein, Percutaneous Approach (ICD-10-PCS; 2023-04-19)
PROC: B547ZZA Ultrasonography of Left Subclavian Vein, Guidance (ICD-10-PCS; 2023-04-19)
PROC: 0PSC04Z Reposition Right Humeral Head with Internal Fixation Device, Open Approach (ICD-10-PCS; principal; 2023-04-20)
DX: S42.291A Other displaced fracture of upper end of right humerus, initial encounter for closed fracture (principal); J96.01 Acute respiratory failure with hypoxia; G93.41 Metabolic encephalopathy; E22.2 Syndrome of inappropriate secretion of antidiuretic hormone; T17.990A Other foreign object in respiratory tract, part unspecified in causing asphyxiation, initial encounter; E86.0 Dehydration; I25.10 Atherosclerotic heart disease of native coronary artery without angina pectoris; E87.6 Hypokalemia; F20.9 Schizophrenia, unspecified; F39 Unspecified mood [affective] disorder; G40.909 Epilepsy, unspecified, not intractable, without status epilepticus; J98.11 Atelectasis; Z85.118 Personal history of other malignant neoplasm of bronchus and lung; Z95.828 Presence of other vascular implants and grafts; Z95.5 Presence of coronary angioplasty implant and graft; W19.XXXA Unspecified fall, initial encounter; Y93.9 Activity, unspecified; Y92.129 Unspecified place in nursing home as the place of occurrence of the external cause; E88.09 Other disorders of plasma-protein metabolism, not elsewhere classified; Z92.21 Personal history of antineoplastic chemotherapy; F60.9 Personality disorder, unspecified
CPT/HCPCS: 36410; 36415; 36600; 71045-TC; 71250-TC; 73020; 73030-TC; 73080-TC; 73110; 80048-TC; 80053-TC; 81001; 82803-TC; 83605-TC; 83735-TC; 83880; 84100-TC; 85025-TC; 85730-TC; 87081-TC; 87086-TC; 93307-TC; 94640-TC; 94668-TC; 94799-TC; 97110-TC; 97112-TC; 97116-TC; 97530-TC; A4217; A4223; A4565; A6253; A6402; C1713; G0378; J0690; J0696; J1650; J1885; J2060; J2250; J2270; J2405; J2704; J2765; J2795; J3010; J3370; J3480; J3490; J7030; J7050; J7060

== ENCOUNTER 2023-05-02 07:25 | Emergency (ER) | payer MEDICAID ==
[~2023-05-02] VITALS: Ht 162.6 cm; Wt 52.2 kg
[~2023-05-02 07:25] MED LIST: AMLO2.5T4 PO; APIX5TAB PO; ASPI-1169 PO; ATOR10TA PO; DOCU250C14 PO; FERR325T23 PO; FURO20TA4 PO; GABA-536 PO; LORA10TA7 PO; METO50TA16 PO; MULT-1160 PO; OLAN10TA3 PO; OLAN15TA3 PO; OMEP20CA15 PO; OXYC-128 PO; PHENOBARBITAL PO; PRIM250T32 PO; QUET100T PO; RISP0.5T65 PO; SODI1TAB66 PO; TEMA15CA PO
--- NOTE | 2023-05-02 07:30 | NUR ---
PATIENT CAME TO EMERGENCY DEPARTMENT FOR PAIN AT [facility] ,HAD A FALL BEFORE WEEK.ALERT AND ORIENTED.ATTACHED TO MONITOR.ON ROOM AIR.AWAITING MD FOR EVAL.
[2023-05-02] MEDS ORDERED: MORPHINE SULFATE INJ 2 MG/ML DISP.SYRIN ONE (07:52)
--- NOTE | 2023-05-02 07:53 | NUR ---
SET UP TRANSPORTATION WITH VALENTIN BRAVO 1 HOUR
[2023-05-02] MEDS ORDERED: MORPHINE SULFATE INJ 2 MG/ML DISP.SYRIN IM ONE (08:00)
--- NOTE | 2023-05-02 08:20 | NUR ---
CALLED MULTIPLE TIMES TO FACILITY FOR NOTIFICATION THAT PATIENT IS COMING BACK TO [facility].NOT RESPONDING
--- NOTE | 2023-05-02 09:47 | NUR ---
TRANSPORTATION ARRIVED. PT TRANSPORTED BACK TO FACILTY IN STABLE CONDITION
[2023-05-02 09:48] VITALS: BP 122/81; TEMP 97.7; O2SAT 97
== END 2023-05-02 09:48 | disposition home or self-care (01) ==
LOC: ER 07:58
DX: S42.301D Unspecified fracture of shaft of humerus, right arm, subsequent encounter for fracture with routine healing (principal); I10 Essential (primary) hypertension; F20.9 Schizophrenia, unspecified; Z79.899 Other long term (current) drug therapy; W18.30XD Fall on same level, unspecified, subsequent encounter
CPT/HCPCS: 99283; 96372; J2270

== ENCOUNTER 2023-05-09 01:31 | Emergency (ER) | payer MEDICAID ==
[~2023-05-09] VITALS: Ht 167.6 cm; Wt 62.6 kg
[2023-05-09] MEDS ORDERED: HYDROCODONE/APAP 5/325MG TABLET PO ONE (02:00)
[2023-05-09] MEDS ORDERED: HYDROCODONE/APAP 5/325MG TABLET ONE (02:02)
[2023-05-09 05:12] VITALS: BP 141/67; TEMP 98; O2SAT 98
== END 2023-05-09 05:12 ==
LOC: ER 01:35
DX: S42.291A Other displaced fracture of upper end of right humerus, initial encounter for closed fracture (principal); W01.0XXA Fall on same level from slipping, tripping and stumbling without subsequent striking against object, initial encounter; Y93.89 Activity, other specified; Y92.89 Other specified places as the place of occurrence of the external cause; Y99.8 Other external cause status
CPT/HCPCS: 73030-TC

== ENCOUNTER 2023-05-17 02:18 | Inpatient (IN) | payer MEDICAID ==
[~2023-05-17] VITALS: Ht 162.6 cm; Wt 59.9 kg
[2023-05-17] MEDS ORDERED: VANCOMYCIN 1 GM /D5W 250 ML PB IV ONE (02:46)
[2023-05-17] MEDS ORDERED: CEFEPIME 1 GM VIAL ONE (02:46)
[2023-05-17] MEDS ORDERED: VANCOMYCIN 1 GM in IV D5W 250 ML IV ONE (03:00)
[2023-05-17] MEDS ORDERED: IV NS 0.9% 1,000 ML BAG IV ONE (03:00)
[2023-05-17] MEDS ORDERED: HYDROMORPHONE 1 MG/1 ML DISP.SYRIN IV ONE (03:00)
[2023-05-17] MEDS ORDERED: CEFEPIME 1 GM in IV D5W 50 ML IV ONE ×2 (03:00→09:00)
[2023-05-17 04:05] LABS: BASOPHILS % (AUTO) 0.8 % (0.0-2.0); EOSINOPHILS # (AUTO) 0.2 K/uL (0.0-0.7); EOSINOPHILS % (AUTO) 3.4 % (0.0-6.0); HEMATOCRIT 32 % (33-45); HEMOGLOBIN 11.2 g/dL (11.5-14.8); LYMPHOCYTES # (AUTO) 2.3 K/uL (0.8-4.8); MEAN CORPUSCULAR HEMOGLOBIN 33 PG (26.0-33.0); MEAN CORPUSCULAR HGB CONC 35 g/dl (31.0-36.0); MEAN CORPUSCULAR VOLUME 94 fL (82-100); MONOCYTES # (AUTO) 0.3 K/uL (0.1-1.30); MONOCYTES % (AUTO) 6.3 % (2.0-12.0); NEUTROPHILS # (AUTO) 2.4 K/uL (1.8-8.9); NEUTROPHILS % (AUTO) 46.5 % (43.0-81.0); PLATELET COUNT (AUTO) 360 K/uL (150-450); RED BLOOD CELL COUNT(AUTO) 3.44 MIL/uL (4.0-5.2); RED CELL DISTRIBUTION WIDTH 14.5 % (11.5-15.0); WHITE BLOOD COUNT (AUTO) 5.3 K/uL (4.3-11.0)
[2023-05-17 04:15] LABS: CALCIUM, SERUM 9.5 mg/dL (8.5-10.1); CARBON DIOXIDE 26 mmol/L (21-32); CHLORIDE 98 mmol/L (98-107); CREATININE 0.4 mg/dL (0.6-1.3); GLUCOSE 94 mg/dL (74-106); POTASSIUM 4.3 mmol/L (3.5-5.1); SODIUM SERUM 133 mmol/L (136-145); UREA NITROGEN, BLOOD 8 mg/dL (7-18)
[2023-05-17 04:25] LABS: ALANINE AMINOTRANSFERASE 39 U/L (12-78); ALBUMIN 3.4 g/dL (3.4-5.0); ALKALINE PHOSPHATASE 165 U/L (46-116); ASPARTATE AMINOTRANSFERASE 38 U/L (15-37); BILIRUBIN,DIRECT 0.1 mg/dL (0.0-0.2); BILIRUBIN,TOTAL 0.4 mg/dL (0.2-1.0); INR 1.11 (0.91-1.10); PARTIAL THROMBOPLASTIN TIME 30.5 SEC (24.3-34.3); PROTHROMBIN TIME 11.6 SECS (9.2-11.1); TOTAL PROTEIN, SERUM 7.9 g/dL (6.4-8.2)
[2023-05-17] MEDS ORDERED: HYDROMORPHONE 1 MG/1 ML DISP.SYRIN ONE (04:32)
[2023-05-17 04:38] LABS: LACTIC ACID 0.7 mmol/L (0.4-2.0)
[2023-05-17] MEDS ORDERED: MAGNESIUM HYDROXIDE 30 ML UDC PO PRN (05:00)
[2023-05-17] MEDS ORDERED: ONDANSETRON HCL/PF 4 MG/2 ML VIAL IVP PRN (05:00)
[2023-05-17] MEDS ORDERED: ACETAMINOPHEN 325 MG TABLET PO PRN (05:00)
[2023-05-17] MEDS ORDERED: MAG HYDROX/AL HYDROX/SIMETH 30 ML UDC PO PRN (05:00)
[2023-05-17] MEDS ORDERED: oxyCODONE/APAP (5/325 MG) 1 UDTAB TABLET PO PRN (05:00)
[2023-05-17] MEDS ORDERED: ZOLPIDEM TARTRATE 5 MG TABLET PO PRN (05:00)
[2023-05-17] MEDS ORDERED: Z GUARD REMEDY 4 OZ OINT TP PRN (05:00)
[2023-05-17 06:00] VITALS: BP 145/79; TEMP 98.2; O2SAT 95
[2023-05-17 08:00] VITALS: BP 144/88; TEMP 98; O2SAT 98
[2023-05-17] MEDS: PANTOPRAZOLE 40 MG TABLET.DR PO SCH (08:10)
[2023-05-17] MEDS: HYDROMORPHONE INJ 2 MG/ML DISP.SYRIN IV PRN ×3 (08:43→21:10)
[2023-05-17] MEDS: FERROUS SULFATE (325 MG) 325 MG/TAB TABLET PO SCH (08:48)
[2023-05-17] MEDS: risperiDONE 0.25 MG TABLET PO SCH ×2 (08:48→17:00)
[2023-05-17] MEDS: AMLODIPINE BESYLATE 2.5 MG TABLET PO SCH (08:48)
[2023-05-17] MEDS: OLANZAPINE 10 MG TABLET PO SCH (08:48)
[2023-05-17] MEDS: DOCUSATE SODIUM 250 MG CAPSULE PO SCH ×2 (08:49→17:06)
[2023-05-17] MEDS: GABAPENTIN 400 MG CAPSULE PO SCH ×3 (08:49→17:06)
[2023-05-17] MEDS: APIXABAN 5 MG TABLET PO SCH ×2 (08:49→21:43)
[2023-05-17] MEDS: PRIMIDONE 250 MG TABLET PO SCH ×2 (08:49→21:43)
[2023-05-17] MEDS: MULTIVIT W/MINERALS 1 TAB TABLET PO SCH (08:50)
[2023-05-17] MEDS: FUROSEMIDE 20 MG TABLET PO SCH (08:50)
[2023-05-17] MEDS: METOPROLOL TARTRATE 50 MG TABLET PO SCH ×2 (08:50→21:44)
[2023-05-17] MEDS: ASPIRIN 81 MG TAB.CHEW PO SCH (08:57)
[2023-05-17] MEDS: PHENOBARBITAL 60 MG/15 ML UDC PO SCH ×2 (08:58→17:08)
[2023-05-17] MEDS ORDERED: PHENOBARBITAL 20 MG/5 ML UDC PO SCH (09:00)
[2023-05-17] MEDS: VANCOMYCIN HCL 0.75 GM in IV D5W 250 ML IV SCH ×2 (14:35→22:38)
[2023-05-17 16:00] VITALS: BP 94/56; TEMP 98.6; O2SAT 94
[2023-05-17 20:37] VITALS: BP 95/54; TEMP 98; O2SAT 92
[2023-05-17] MEDS: CEFEPIME 2 GM in IV D5W 100 ML IV SCH (21:43)
[2023-05-17] MEDS ORDERED: QUETIAPINE FUMARATE 100 MG TABLET PO SCH (22:00)
[2023-05-17] MEDS ORDERED: TEMAZEPAM 15 MG CAPSULE PO SCH (22:00)
[2023-05-17] MEDS ORDERED: ATORVASTATIN 10 MG TABLET PO SCH (22:00)
[2023-05-17] MEDS ORDERED: OLANZAPINE 5 MG TABLET PO SCH (22:00)
[2023-05-18] MEDS ORDERED: CEFEPIME 1 GM in IV D5W 50 ML IV SCH (03:00)
[2023-05-18] MEDS: VANCOMYCIN HCL 0.75 GM in IV D5W 250 ML IV SCH ×2 (05:52→13:32)
[2023-05-18 06:14] LABS: BASOPHILS % (AUTO) 1.2 % (0.0-2.0); EOSINOPHILS # (AUTO) 0.1 K/uL (0.0-0.7); EOSINOPHILS % (AUTO) 2.7 % (0.0-6.0); HEMATOCRIT 33 % (33-45); HEMOGLOBIN 11.1 g/dL (11.5-14.8); LYMPHOCYTES # (AUTO) 1.3 K/uL (0.8-4.8); LYMPHOCYTES % (AUTO) 31.1 % (20.0-44.0); MEAN CORPUSCULAR HEMOGLOBIN 32 PG (26.0-33.0); MEAN CORPUSCULAR HGB CONC 33 g/dl (31.0-36.0); MEAN CORPUSCULAR VOLUME 95 fL (82-100); MONOCYTES # (AUTO) 0.2 K/uL (0.1-1.30); MONOCYTES % (AUTO) 5.9 % (2.0-12.0); NEUTROPHILS # (AUTO) 2.5 K/uL (1.8-8.9); NEUTROPHILS % (AUTO) 59.1 % (43.0-81.0); PLATELET COUNT (AUTO) 306 K/uL (150-450); RED CELL DISTRIBUTION WIDTH 14.7 % (11.5-15.0); WHITE BLOOD COUNT (AUTO) 4.2 K/uL (4.3-11.0)
[2023-05-18 06:56] LABS: CALCIUM, SERUM 9.2 mg/dL (8.5-10.1); CARBON DIOXIDE 24 mmol/L (21-32); CHLORIDE 96 mmol/L (98-107); CREATININE 0.5 mg/dL (0.6-1.3); GLUCOSE 95 mg/dL (74-106); MAGNESIUM 1.9 mg/dL (1.8-2.4); PHOSPHORUS 4.2 mg/dL (2.5-4.9); POTASSIUM 4.5 mmol/L (3.5-5.1); SODIUM SERUM 130 mmol/L (136-145); UREA NITROGEN, BLOOD 10 mg/dL (7-18)
[2023-05-18 08:00] VITALS: BP 169/90; TEMP 98.6; O2SAT 95
[2023-05-18] MEDS: CEFEPIME 2 GM in IV D5W 100 ML IV SCH (09:14)
[2023-05-18] MEDS: ASPIRIN 81 MG TAB.CHEW PO SCH (09:14)
[2023-05-18] MEDS: AMLODIPINE BESYLATE 2.5 MG TABLET PO SCH (09:14)
[2023-05-18] MEDS: GABAPENTIN 400 MG CAPSULE PO SCH ×3 (09:14→16:31)
[2023-05-18] MEDS: FERROUS SULFATE (325 MG) 325 MG/TAB TABLET PO SCH (09:15)
[2023-05-18] MEDS: MULTIVIT W/MINERALS 1 TAB TABLET PO SCH (09:15)
[2023-05-18] MEDS: FUROSEMIDE 20 MG TABLET PO SCH (09:15)
[2023-05-18] MEDS: PRIMIDONE 250 MG TABLET PO SCH (09:15)
[2023-05-18] MEDS: OLANZAPINE 10 MG TABLET PO SCH (09:15)
[2023-05-18] MEDS: DOCUSATE SODIUM 250 MG CAPSULE PO SCH ×2 (09:15→16:31)
[2023-05-18] MEDS: METOPROLOL TARTRATE 50 MG TABLET PO SCH (09:15)
[2023-05-18] MEDS: APIXABAN 5 MG TABLET PO SCH (09:21)
[2023-05-18] MEDS: risperiDONE 0.25 MG TABLET PO SCH ×2 (09:21→16:31)
[2023-05-18] MEDS: PANTOPRAZOLE 40 MG TABLET.DR PO SCH (09:21)
[2023-05-18] MEDS: PHENOBARBITAL 60 MG/15 ML UDC PO SCH ×2 (09:22→16:32)
[2023-05-18] MEDS ORDERED: DOXY150T3 PO (10:26)
[2023-05-18 15:47] VITALS: BP 129/75; TEMP 99.6; O2SAT 99
== END 2023-05-18 17:50 | disposition home health service (06) | DRG 721 ==
LOC: ER 02:25 → MED 04:50
PROVIDERS: ADMIT Internal Medicine; ATTEND Internal Medicine
DX: T81.49XA Infection following a procedure, other surgical site, initial encounter (principal); R56.9 Unspecified convulsions; E87.1 Hypo-osmolality and hyponatremia; L03.113 Cellulitis of right upper limb; I10 Essential (primary) hypertension; I25.10 Atherosclerotic heart disease of native coronary artery without angina pectoris; Y83.8 Other surgical procedures as the cause of abnormal reaction of the patient, or of later complication, without mention of misadventure at the time of the procedure; E87.6 Hypokalemia; Y92.129 Unspecified place in nursing home as the place of occurrence of the external cause; F20.9 Schizophrenia, unspecified; G89.29 Other chronic pain; Z95.5 Presence of coronary angioplasty implant and graft; Z98.890 Other specified postprocedural states; G47.00 Insomnia, unspecified; Z79.82 Long term (current) use of aspirin; Z79.01 Long term (current) use of anticoagulants; Z79.899 Other long term (current) drug therapy; E86.1 Hypovolemia; Z96.649 Presence of unspecified artificial hip joint
CPT/HCPCS: 36415; 71045-TC; 80048-TC; 80076-TC; 80202-TC; 83605-TC; 83735-TC; 84100-TC; 84484-TC; 85025-TC; 85730-TC; 87040-TC; 87081-TC; 93971-TC; 97110-TC; 97116-TC; 97530-TC; 97535-TC; A4223; G0378; J0692; J1170; J3370; J7030; J7060

== ENCOUNTER 2023-05-23 16:37 | Emergency (ER) | payer MEDICAID ==
[~2023-05-23] VITALS: Ht 165.1 cm; Wt 65.8 kg
[~2023-05-23 16:37] MED LIST changes: +DOXY150T3 PO
[2023-05-23 17:52] LABS: BASOPHILS % (AUTO) 0.4 % (0.0-2.0); EOSINOPHILS # (AUTO) 0.1 K/uL (0.0-0.7); EOSINOPHILS % (AUTO) 1.1 % (0.0-6.0); HEMATOCRIT 32 % (33-45); HEMOGLOBIN 10.9 g/dL (11.5-14.8); LYMPHOCYTES # (AUTO) 2.6 K/uL (0.8-4.8); LYMPHOCYTES % (AUTO) 24.9 % (20.0-44.0); MEAN CORPUSCULAR HEMOGLOBIN 32 PG (26.0-33.0); MEAN CORPUSCULAR HGB CONC 34 g/dl (31.0-36.0); MEAN CORPUSCULAR VOLUME 95 fL (82-100); MONOCYTES # (AUTO) 0.5 K/uL (0.1-1.30); NEUTROPHILS # (AUTO) 7.2 K/uL (1.8-8.9); NEUTROPHILS % (AUTO) 68.6 % (43.0-81.0); PLATELET COUNT (AUTO) 327 K/uL (150-450); RED CELL DISTRIBUTION WIDTH 14.5 % (11.5-15.0); WHITE BLOOD COUNT (AUTO) 10.6 K/uL (4.3-11.0)
[2023-05-23 18:48] LABS: CARBON DIOXIDE 26 mmol/L (21-32); CHLORIDE 101 mmol/L (98-107); CREATININE 0.5 mg/dL (0.6-1.3); GLUCOSE 87 mg/dL (74-106); POTASSIUM 3.8 mmol/L (3.5-5.1); SODIUM SERUM 133 mmol/L (136-145); UREA NITROGEN, BLOOD 12 mg/dL (7-18)
[2023-05-23] MEDS ORDERED: ACETAMINOPHEN ES 500 MG TABLET ONE (19:28)
[2023-05-23] MEDS: ACETAMINOPHEN 325 MG TABLET PO ONE ×2 (19:29→19:47)
[2023-05-23] MEDS ORDERED: MORPHINE SULFATE INJ 2 MG/ML DISP.SYRIN IV ONE (20:00)
[2023-05-23] MEDS ORDERED: MORPHINE SULFATE INJ 4 MG/ML DISP.SYRIN ONE (20:28)
[2023-05-23 22:17] VITALS: BP 150/103; TEMP 97.5; O2SAT 96
== END 2023-05-23 22:18 | disposition home or self-care (01) ==
LOC: ER 16:44
DX: M25.511 Pain in right shoulder (principal); I10 Essential (primary) hypertension; F20.9 Schizophrenia, unspecified; Z79.899 Other long term (current) drug therapy; W18.30XA Fall on same level, unspecified, initial encounter; Y93.89 Activity, other specified; Y92.89 Other specified places as the place of occurrence of the external cause; Y99.8 Other external cause status
CPT/HCPCS: 99285; 96374; 71045; 93005 ×2; 73080; 73030; 85025; 80048; 36415; 84484; J2270